=== PATIENT | female | born 1945 | race Caucasian/White ===

== ENCOUNTER 2021-04-05 15:22 | Outpatient (CLI) | payer MEDICARE, OTHER | END 2021-04-05 15:23 | disposition home or self-care (01) | LOC: CSHMRI 15:22 | PROVIDERS: ATTEND Orthopaedic Surgery | DX: M25.552 Pain in left hip (principal); M25.852 Other specified joint disorders, left hip; M62.89 Other specified disorders of muscle ==

== ENCOUNTER 2021-05-28 13:48 | Outpatient (CLI) | payer MEDICARE, OTHER | END 2021-05-28 13:49 | disposition home or self-care (01) | LOC: CSHMRI 13:48 | PROVIDERS: ATTEND Anesthesiology | DX: M54.16 Radiculopathy, lumbar region (principal); M51.06 Intervertebral disc disorders with myelopathy, lumbar region; M48.061 Spinal stenosis, lumbar region without neurogenic claudication | CPT/HCPCS: 72148 ==

== ENCOUNTER 2025-02-18 10:16 | Outpatient (CLI) | payer MEDICARE, OTHER ==
[2025-02-18] MEDS ORDERED: Iopamidol 300 61% 100 ML VIAL FS ONE (12:47)
== END 2025-02-18 10:17 | disposition home or self-care (01) ==
LOC: CSHCT 10:16
PROVIDERS: ATTEND Internal Medicine
DX: R10.9 Unspecified abdominal pain (principal); K57.32 Diverticulitis of large intestine without perforation or abscess without bleeding
CPT/HCPCS: 74177